=== PATIENT | female | born 1980 ===

== ENCOUNTER 2021-11-27 08:00 | Inpatient (IN) | payer OTHER ==
[~2021-11-27] VITALS: Ht 157.5 cm; Wt 54.4 kg
[2021-12-01] MEDS ORDERED: Tylenol #3 PO (08:59)
[2021-12-01] MEDS ORDERED: NAPR500T14 PO (08:59)
== END 2021-12-01 09:51 | disposition home or self-care (01) | DRG 743 ==
LOC: O/R 11-30 06:00 → SURG 11-30 08:00 → OB/GYN 11-30 10:33 → SURG 11-30 12:15 → OB/GYN 12-01 09:51
PROVIDERS: ADMIT Obstetrics & Gynecology; ATTEND Obstetrics & Gynecology
PROC: 0UQF0ZZ Repair Cul-de-sac, Open Approach (ICD-10-PCS; 2021-11-30)
PROC: 0USG0ZZ Reposition Vagina, Open Approach (ICD-10-PCS; 2021-11-30)
PROC: 0TJB8ZZ Inspection of Bladder, Via Natural or Artificial Opening Endoscopic (ICD-10-PCS; 2021-11-30)
PROC: 0UT97ZZ Resection of Uterus, Via Natural or Artificial Opening (ICD-10-PCS; principal; 2021-11-30 12:15)
DX: D25.1 Intramural leiomyoma of uterus (principal); N72 Inflammatory disease of cervix uteri; Z20.822 Contact with and (suspected) exposure to COVID-19